=== PATIENT | female | born 1970 | race Caucasian/White ===

== ENCOUNTER 2021-08-31 00:23 | Emergency (ER) | payer OTHER ==
[~2021-08-31] VITALS: Ht 165.1 cm; Wt 68.0 kg
[2021-08-31 01:40] LABS: BASOPHILS % (AUTO) 0 % (0-10); EOSINOPHILS # (AUTO) 0.3 10^3/uL (0.0-0.3); EOSINOPHILS % (AUTO) 3 % (0-10); HEMATOCRIT 41 % (35-52); HEMOGLOBIN 13.7 g/dL (11.5-16.0); LYMPHOCYTES # (AUTO) 2.5 10^3/uL (1.0-4.0); LYMPHOCYTES % (AUTO) 28 % (12-44); MEAN CORPUSCULAR HEMOGLOBIN 32 pg (25-34); MEAN CORPUSCULAR HGB CONC 33 g/dL (32-36); MEAN CORPUSCULAR VOLUME 95 fL (80-99); MEAN PLATELET VOLUME 9.9 fL (9.0-12.2); MONOCYTES # (AUTO) 0.8 10^3/uL (0.0-1.0); MONOCYTES % (AUTO) 9 % (0-12); NEUTROPHILS # (AUTO) 5.3 10^3/uL (1.8-7.8); NEUTROPHILS % (AUTO) 59 % (42-75); PLATELET COUNT 228 10^3/uL (130-400); WHITE BLOOD COUNT 8.9 10^3/uL (4.3-11.0)
[2021-08-31] MEDS ORDERED: ASPIRIN 81 MG CHEW (CHILDREN'S ASA) PO ONE (01:45)
[2021-08-31] MEDS ORDERED: FAMOTIDINE 20MG/2ML IV (PEPCID) IV STA (01:49)
[2021-08-31 01:57] LABS: BILIRUBIN,URINE NEGATIVE (NEGATIVE); CLARITY,URINE CLEAR; COLOR,URINE YELLOW; GLUCOSE, URINE (UA) 3+ (NEGATIVE); KETONES,URINE NEGATIVE (NEGATIVE); LEUKOCYTE ESTERASE ,URINE TRACE (NEGATIVE); NITRITE,URINE NEGATIVE (NEGATIVE); PROTEIN,URINE NEGATIVE (NEGATIVE)
--- NOTE | 2021-08-31 01:57 | ED Abdominal Pain ---
General Chief Complaint: Abdominal/GI Problems Stated Complaint: CP,LEFT ARM PAIN,LIGHT HEADED,DIZZY,HOT Nursing Triage Note: TO ED VIA POV AND AMBULATORY TO ROOM 5 WITH C/O RUQ ABD PAIN, LEFT ARM PAIN, DISORIENTATION. Source of Information: Patient Exam Limitations: No Limitations History of Present Illness Date Seen by Provider: Aug 31, 2021 Time Seen by Provider: 01:15 Initial Comments Patient to the ER by private conveyance with her and chief complaint that there appears work from [facility] with chief complaint of last several days having some chest pain and epigastric/right upper quadrant abdominal pain. She took a diclofenac 75 mg tablet. She takes these about 2-3 times a day in addition to Nucynta for her fibromyalgia and arthritis. She did not feel this gave her any relief of her symptoms. She did not take any Tums. She says 2 to 3 weeks ago she was in [place] at a urgent care clinic and was told she had a UTI and pancreatitis. She has never had EGD but she has a follow-up appointment with a environmental remediation consultant in October. No fevers or chills cough congestion diarrhea or constipation. Last week she had some constipation but Dulcolax took care of it. She has had a laparoscopic hysterectomy and no other abdominal surgeries. Allergies and Home Medications Allergies Coded Allergies: No Known Drug Allergies (Unverified , 08/31/21) Patient Home Medication List Home Medication List Reviewed: Yes Omeprazole (Omeprazole) 40 Mg Capsule.dr, 40 MG PO DAILY Prescribed by: STEPHON SALAZAR on 08/31/21315 Sucralfate (Carafate) 1 Gm Tablet, 1 GM PO QIDACHS Prescribed by: STEPHON SALAZAR on 08/31/21315 Review of Systems Review of Systems Constitutional: No chills, No diaphoresis EENTM: No Blurred Vision, No Double Vision Respiratory: Denies Cough, Denies Shortness of Air Cardiovascular: See HPI, Chest Pain; Denies Lightheadedness Gastrointestinal: See HPI; Denies Abdomen Distended; Abdominal Pain; Denies Constipated, Denies Diarrhea, Denies Nausea Genitourinary: Burning (2 days); Denies Discharge Musculoskeletal: No back pain, No joint pain Skin: No pruritus, No rash Psychiatric/Neurological: Denies Anxiety, Denies Depressed All Other Systems Reviewed Negative Unless Noted: Yes Past Licxpwk-Udewts-Wqbjip Hx Patient Social History Tobacco Use?: Yes Smoking Status: Current Everyday Smoker Substance use?: No Alcohol Use?: No Immunizations Up To Date Influenza Vaccine Up-to-Date: No; Not Current Past Medical History Surgery/Hospitalization HX: DEPRESSION TYPE 2 DM PARTIAL HYSTERECTOMY Physical Exam Vital Signs Vital Signs - First Documented 08/31/21 00:47 Temp 36.4 Pulse 87 Resp 18 B/P (MAP) 164/88 (113) Pulse Ox 97 O2 Delivery Room Air Capillary Refill : Less Than 3 Seconds Height/Weight/BMI Height: '" Weight: lbs. oz. kg; 24.00 BMI Method: General Appearance: WD/WN, mild distress HEENT: PERRL/EOMI, pharynx normal Neck: full range of motion, normal inspection Respiratory: lungs clear, normal breath sounds, no respiratory distress, no accessory muscle use Cardiovascular: normal peripheral pulses, regular rate, rhythm Peripheral Pulses: 2+ Radial Pulses (R), 2+ Radial Pulses (L) Gastrointestinal: normal bowel sounds, non tender, soft, no organomegaly Extremities: normal range of motion, non-tender, normal capillary refill Neurologic/Psychiatric: no motor/sensory deficits, alert, normal mood/affect, oriented x 3 Skin: normal color, warm/dry Progress/Results/Core Measures Results/Orders Lab Results Laboratory Tests Test 08/31/21 01:05 08/31/21 01:20 08/31/21 01:34 Range/Units D-Dimer 0.18 0.00-0.49 UG/ML Urine Color YELLOW Urine Clarity CLEAR Urine pH 7.0 5-9 Urine Specific [place] 1.015 L 1.016-1.022 Urine Protein NEGATIVE NEGATIVE Urine Glucose (UA) 3+ H NEGATIVE Urine Ketones NEGATIVE NEGATIVE Urine Nitrite NEGATIVE NEGATIVE Urine Bilirubin NEGATIVE NEGATIVE Urine Urobilinogen 0.2 < = 1.0 MG/DL Urine Leukocyte Esterase TRACE H NEGATIVE Urine RBC (Auto) NEGATIVE NEGATIVE Urine RBC NONE /HPF Urine WBC 0-2 /HPF Urine Squamous Epithelial Cells 0-2 /HPF Urine Crystals NONE /LPF Urine Bacteria NEGATIVE /HPF Urine Casts NONE /LPF Urine Mucus NEGATIVE /LPF Urine Culture Indicated NO White Blood Count 8.9 4.3-11.0 10^3/uL Red Blood Count 4.31 3.80-5.11 10^6/uL Hemoglobin 13.7 11.5-16.0 g/dL Hematocrit 41 35-52 % Mean Corpuscular Volume 95 80-99 fL Mean Corpuscular Hemoglobin 32 25-34 pg Mean Corpuscular Hemoglobin Concent 33 32-36 g/dL Red Cell Distribution Width 11.7 10.0-14.5 % Platelet Count 228 130-400 10^3/uL Mean Platelet Volume 9.9 9.0-12.2 fL Immature Granulocyte % (Auto) 1 % Neutrophils (%) (Auto) 59 42-75 % Lymphocytes (%) (Auto) 28 12-44 % Monocytes (%) (Auto) 9 0-12 % Eosinophils (%) (Auto) 3 0-10 % Basophils (%) (Auto) 0 0-10 % Neutrophils # (Auto) 5.3 1.8-7.8 10^3/uL Lymphocytes # (Auto) 2.5 1.0-4.0 10^3/uL Monocytes # (Auto) 0.8 0.0-1.0 10^3/uL Eosinophils # (Auto) 0.3 0.0-0.3 10^3/uL Basophils # (Auto) 0.0 0.0-0.1 10^3/uL Immature Granulocyte # (Auto) 0.1 0.0-0.1 10^3/uL Prothrombin Time 12.6 12.2-14.7 SEC INR Comment 0.9 0.8-1.4 Activated Partial Thromboplast Time 37 H 24-35 SEC Sodium Level 139 135-145 MMOL/L Potassium Level 3.9 3.6-5.0 MMOL/L Chloride Level 104 98-107 MMOL/L Carbon Dioxide Level 22 21-32 MMOL/L Anion Gap 13 5-14 MMOL/L Blood Urea Nitrogen 22 H 7-18 MG/DL Creatinine 0.74 0.60-1.30 MG/DL Estimat Glomerular Filtration Rate 84 BUN/Creatinine Ratio 30 Glucose Level 179 H 70-105 MG/DL Calcium Level 8.1 L 8.5-10.1 MG/DL Corrected Calcium 8.3 L 8.5-10.1 MG/DL Magnesium Level 1.9 1.6-2.4 MG/DL Total Bilirubin 0.4 0.1-1.0 MG/DL Aspartate Amino Transf (AST/SGOT) 19 5-34 U/L Alanine Aminotransferase (ALT/SGPT) 28 0-55 U/L Alkaline Phosphatase 96 40-136 U/L Myoglobin 17.4 10.0-92.0 NG/ML Troponin I < 0.028 <0.028 NG/ML Total Protein 6.4 6.4-8.2 GM/DL Albumin 3.8 3.2-4.5 GM/DL Lipase 48 8-78 U/L My Orders Orders - STEPHON SALAZAR Cbc With Automated Diff (08/31/21 01:34) Magnesium (08/31/21 01:34) Chest 1 View, Ap/Pa Only (08/31/21 01:34) Ekg Tracing (08/31/21:34) Comprehensive Metabolic Panel (08/31/21:34) Myoglobin Serum (08/31/21:34) Protime With Inr (08/31/21:34) Partial Thromboplastin Time (08/31/21:34) O2 (08/31/21:34) Monitor-Rhythm Ecg Trace Only (08/31/21 01:34) Ed Iv/Invasive Line Start (08/31/21 01:34) Lipase (08/31/21 01:34) Troponin I John (08/31/21 01:34) Aspirin Chewable Tablet (Baby Aspirin Ch (08/31/21 01:45) Fibrin Degradation Products (08/31/21 01:49) Lidocaine 2% Viscous 15 Ml (Xylocaine Vi (08/31/21 02:00) Antacid Suspension (Mylanta Suspension (08/31/21 02:00) Famotidine Injection (Pepcid Injection) (08/31/21 01:49) Ua Culture If Indicated (08/31/21 01:49) Medications Given in ED Vital Signs/I&O 08/31/21 08/31/21 00:47 03:35 Temp 36.4 36.4 Pulse 87 78 Resp 18 16 B/P (MAP) 164/88 (113) 158/82 Pulse Ox 97 96 O2 Delivery Room Air Room Air Blood Pressure Mean: 113 Progress Progress Note #1: Time: 02:00 Progress Note PUD versus pancreatitis versus reproducible chest wall pain/costochondritis. Plan to give her a GI cocktail, aspirin since she has some risk factors smoking, hypertension and diabetes. EKG acceptable. Troponin and labs. Pepcid IV. We have discussed the risks for peptic ulcer disease with her over 1 year use of diclofenac. Progress Note #2: Time: 03:12 Progress Note Encourage her to lay off the NSAIDs. We will put her on some Carafate and om eprazole. We will give her the option to work it up with Dr. Cornelia valdez or her private doctor. Patient is okay with this plan. We discussed imaging. At this time the patient has aseptic vital signs, nonsurgical abdomen and labs are not truly revealing of biliary obstruction so ultrasound and would be a far better test on the outpatient side. Initial ECG Impression Date: Aug 31, 2021 Initial ECG Impression Time: 01:00 Initial ECG Rate: 82 Initial ECG Rhythm: Normal Sinus Initial ECG Intervals: Normal Initial ECG Impression: Normal Initial ECG Comparisson: No Previous ECG Available Comment Normal sinus rhythm without clinically relevant ST changes. Diagnostic Imaging Diagonstic Imaging: Xray Plain Films/CT/US/NM/MRI: chest Comments No acute cardiopulmonary process on chest x-ray. [facility] [place] NAME: TAQUERIA CADENA [facility] REC#: [id number] PT STATUS: DEP ER : 1970 PHYSICIAN: STEPHON SALAZAR MD ADMIT DATE: 08/31/21/ER Signed Date of Exam:08/31/21 CHEST 1 VIEW, AP/PA ONLY CHEST 1 VIEW, AP/PA ONLY Indication: Chest pain. Comparison: None available. Findings: No focal airspace disease in the visualized lungs. Please note that the posterior lower lobes are poorly evaluated by portable radiography. No pleural effusion or pneumothorax. Normal cardiomediastinal silhouette. Impression: 1. No acute cardiopulmonary process by portable radiography. Dictated by: Dictated on workstation # [id number] Dict: 08/31/21621 Trans: 08/31/21621 [facility] [id number] Interpreted by: DEANA CARLIN MD Electronically signed by: DEANA CARLIN MD 08/31/21621 Reviewed: Reviewed by Me Departure Impression Primary Impression: Biliary colic Additional Impression: Gastritis Qualified Codes: K29.00 - Acute gastritis without bleeding Disposition: 01 HOME, SELF-CARE Condition: Stable Departure-Patient Inst. Decision time for Depature: 03:13 Referrals: WILLIAM LOCKE MD NO,LOCAL PHYSICIAN (PCP) Primary Care Physician Patient Instructions: Gallbladder Diet, Gastritis (DC) Add. Discharge Instructions: Omeprazole 40 mg daily for the next 4 weeks. Carafate 1 Tablet half an hour before meals and at bedtime for the next [address] Locke or your primary care doctor to work-up your abdominal discomfort over the next week or 2. Rolaids, Tums, Maalox as necessary for pain. Tylenol 1000 mg every 8 hours necessary for pain. Reduce your use of NSAID such as ibuprofen, Motrin, Aleve, naproxen, diclofenac. All discharge instructions reviewed with patient and/or family. Voiced understanding. Scripts Sucralfate (Carafate) 1 Gm Tablet 1 GM PO QIDACHS for 14 Days, #56 TAB 0 Refills Prov: STEPHON SALAZAR 08/31/21 Omeprazole (Omeprazole) 40 Mg Capsule. 40 MG PO DAILY for 30 Days, #30 CAP 0 Refills Prov: STEPHON SALAZAR 08/31/21 Copy Copies To 1: WILLIAM LOCKE MD, TITUS J Aug 31, 2021 01:57
[2021-08-31] MEDS ORDERED: LIDOCAINE 2% VISCOUS 15 ML UDC PO ONE (02:00)
[2021-08-31] MEDS ORDERED: ANTACID SUSP 30 ML UDC (MYLANTA) PO ONE (02:00)
[2021-08-31 02:02] LABS: ALBUMIN 3.8 GM/DL (3.2-4.5); POTASSIUM 3.9 MMOL/L (3.6-5.0)
[2021-08-31 02:03] LABS: CALCIUM 8.1 MG/DL (8.5-10.1)
[2021-08-31 02:04] LABS: TOTAL PROTEIN 6.4 GM/DL (6.4-8.2)
[2021-08-31 02:06] LABS: BILIRUBIN,TOTAL 0.4 MG/DL (0.1-1.0)
[2021-08-31 02:08] LABS: CREATININE SERUM 0.74 MG/DL (0.60-1.30)
[2021-08-31 02:11] LABS: MAGNESIUM 1.9 MG/DL (1.6-2.4)
[2021-08-31 02:14] LABS: INR 0.9 (0.8-1.4); PROTHROMBIN TIME PATIENT 12.6 SEC (12.2-14.7)
[2021-08-31 02:18] LABS: BACTERIA,URINE NEGATIVE /HPF; SQUAMOUS EPITHELIAL CELL,UR 0-2 /HPF; WBC,URINE 0-2 /HPF
[2021-08-31] MEDS ORDERED: SUCR1TAB36 PO (03:16)
[2021-08-31] MEDS ORDERED: OMEP40CA6 PO (03:16)
[2021-08-31 03:35] VITALS: BP 158/82
--- NOTE | 2021-08-31 06:23 | Diagnostic Imaging Report ---
CHEST 1 VIEW, AP/PA ONLY Indication: Chest pain. Comparison: None available. Findings: No focal airspace disease in the visualized lungs. Please note that the posterior lower lobes are poorly evaluated by portable radiography. No pleural effusion or pneumothorax. Normal cardiomediastinal silhouette. Impression: 1. No acute cardiopulmonary process by portable radiography. Dictated by: Dictated on workstation # [id number]
== END 2021-08-31 03:35 | disposition home or self-care (01) ==
LOC: ER 00:25
DX: K80.50 Calculus of bile duct without cholangitis or cholecystitis without obstruction (principal); K29.70 Gastritis, unspecified, without bleeding; F17.290 Nicotine dependence, other tobacco product, uncomplicated
CPT/HCPCS: 36415; 71045; 80053; 81000; 83690; 83735; 83874; 84484; 85025; 85379; 85610; 85730; 93005; 93041